=== PATIENT | female | born 1960 ===

== ENCOUNTER 2024-07-05 13:15 | Outpatient (RCR) | payer MEDICARE, SELFPAY ==
--- NOTE | 2024-06-06 10:08 | PTOPEVAL1 ---
Assessment and note entered by Mali Chandler, PT Evaluation Information Assessment Status Evaluation Diagnosis z74.09 ICD-10 Condition Codes (PT) Pain in low back M54.50,M25.511,M25.512,Pain in left hip M25.552,Pain in left knee M25.562, Repeated falls R29.6,Difficulty Walking R26.2,R26. 9,Weakness R53.1 Onset approx 3 years ago Subjective Information Pt reports repeated falls in the last 3 years, 3x falling prior to using walker and recently had falls even with a walker due to BLEs giving out on her; pain to B hip and knees L > R. States she also experiences random occurrence of weakness to B shoulders and hands where she would suddenly lose control of the limbs. Low back area is starting to bother her since she started using a walker, generalized pain to back and LE is limiting the standing, walking tolerance to < 10 min, pain and increased fear of falling greatly limits her mobility at home and she is now dependent to her 's assistance. Pt states she wants to be as independent as possible and be able to move around without fear of falling. Reported Pain Level Pain Score 4,3: Self Report Assessment PT Clinical Summary Pt is a 63 yo who presents to therapy with c/o multiple areas of pain and weakness. Complex medical history include Arthritis, Diabetes, GERD (gastroesophageal reflux disease), History of tobacco abuse, Hyperlipidemia, Hypertension, Hypothyroidism, WEST (obstructive sleep apnea), PAD (peripheral artery disease), Peripheral neuropathy. Demos increased pain, significant ROM deficits, balance and gait impairments. Pt will benefit from skilled PT to address pain, improve flexibility and strength, and reduce risk for falls. Plan of Care Interventions Electrical Stimulation,Gait Training,Hot Pack/Cold Pack,Manual Therapy,Neuro Re-education,Patient/ Caregiver Education,Therapeutic Activities, Therapeutic Exercise,Ultrasound PT Services Indicated Yes Treatment Frequency and 2x/wk x 10 visits Duration These treatments will address the objective and functional deficits as defined above. The patient will be advanced safely and appropriately in order for the patient to progress towards his/her prior level of function. Additional exercises will be introduced and as well as a comprehensive home exercise program upon discharg
--- NOTE | 2024-06-12 16:59 | PCPTNOTE ---
Pt did not show up for her appointment today. Reports she was having intense back pain
--- NOTE | 2024-06-22 13:41 | PCPTNOTE ---
Pt cancelled appointment on Jun 21, 2024 due to increased Sciatic pain.
--- NOTE | 2024-07-05 16:41 | PTOPDC ---
Assessment and note entered by Stefanie Chavis, PT Evaluation Information Assessment Status Discharge Diagnosis z74.09 ICD-10 Condition Codes (PT) Pain in low back M54.50,M25.511,M25.512,Pain in left hip M25.552,Pain in left knee M25.562, Repeated falls R29.6,Difficulty Walking R26.2,R26. 9,Weakness R53.1 Onset approx 3 years ago Subjective Information Pt states has a failure in shoulders, and arms. Went to see Neurologist follow up for brain procedure following trigeminal neuralgia which she states didn't work. Tried to burn nerve, is 7 months out. Neurology wanted to introduce a new drug, and decrease carbenzaprene b/c may be contributing to her failures of limbs. States hip causes problems too. She reports one of her falls both knees gave out. Another fall recently that caused a flare up in the back. Reports possible tear in left hip happened while bowling when she was 36 states never got better and was told needed surgery to fix this. Reported Pain Level Pain Score 2,3: Self Report Assessment PT Clinical Summary Pt has had multiple cancellations in her original plan of care with a total of 6 visits attended including evaluation and reevaluation. Pt does not appear open to education at times, declining to perform activities, highly pain focused with all body parts. Pt verbalizes fear of falling during testing today. Pt is highly limited in all mobility and activities, partially self-limiting with pain focus and decreased motivation. Pt does attend her doctor's visits and follows her directions and attempts to do her exercises at home as directed however continues to report being limited by pain. Pt has not made improvements in functional mobility, strength, gait, or endurance since initiation of plan of care. Thus patient is being discharged due to lack of progress. Plan of Care PT Services Indicated No
== END 2024-07-09 09:31 | disposition home or self-care (01) ==
LOC: ANHHIPT 13:15
PROVIDERS: PCP Physician Assistant Medical; Visit Provider Physician Assistant Medical
DX: Z74.09 Other reduced mobility (principal)
CPT/HCPCS: 97014; 97110; 97112; 97140; 97161; 97164; G0283

== ENCOUNTER 2024-07-23 13:02 | Outpatient (RCR) | payer MEDICARE, SELFPAY ==
--- NOTE | 2024-07-23 14:16 | OTOPEVDC ---
Assessment and note entered by Suman Fan, SHANON/Catrachito, CHT OT Evaluation Information Diagnosis Reduced mobility, chronic pain Subjective Information Patient is referred for a power wheelchair evaluation. Patient comes with the diagnoses with reduced mobility, chronic pain, peripheral neuropathy, and trigeminal neuralgia. She has been on carbamazepine for 25 years and has developed involuntary jerking of her extremities which the neurologist told her was a side effect of taking this medication for prolonged periods of time. Her legs give out on her and she has frequent falls. Please refer to scanned 12 page seating/ mobility evaluation form for further details. Assessment OT Clinical Summary Cande is unable to safely and independently ambulate household distances safely due to her current impairments of weakness, pain, decreased balance, and neurological deficits (jerking of extremities due to a medication side effect). She has frequent falls and is a high fall risk due to these deficits also. Cande demonstrates significant functional mobility limitations that impairs her ability to safely participate in mobility-related ADLs. These limitations cannot be sufficiently resolved by the use of an appropriately fitted cane or walker due to weakness, pain, balance deficits, neurological deficits, and frequent falls. She is unable to self propel a manual wheelchair due to arm and back pain as well as shortness of breath with exertion. A scooter is not a safe option due to patient's difficulty with transfers, sitting balance, back/arm pain, and their home environment. The use of a power wheelchair would provide Cande with a safe means of functional mobility necessary for completion of mobility-related ADLs. The use of a power wheelchair will facilitate optimal safety, independence, and participation in ADLs and household tasks. She has demonstrated sufficient physical and mental capabilities needed to safely operate a power wheelchair in the home. She is willing, capable, and able to operate the equipment.
== END 2024-10-21 23:59 | disposition home or self-care (01) ==
LOC: ANHHIOT 13:02
PROVIDERS: PCP Physician Assistant Medical; Visit Provider Physician Assistant Medical
DX: Z74.09 Other reduced mobility (principal); G89.29 Other chronic pain
CPT/HCPCS: 97167